=== PATIENT | female | born 1955 ===

== ENCOUNTER 2025-08-09 06:12 | Day surgery (SDC) | payer MEDICARE, OTHER, SELFPAY | END 2025-08-09 12:02 | disposition home or self-care (01) | LOC: GI 06:12 | PROVIDERS: ATTENDING PHYSICIAN Internal Medicine Gastroenterology | DX: Z12.11 Encounter for screening for malignant neoplasm of colon (principal); K64.8 Other hemorrhoids; K57.30 Diverticulosis of large intestine without perforation or abscess without bleeding; Z86.0100 Personal history of colon polyps, unspecified | CPT/HCPCS: G0105 ==